=== PATIENT | male | born 1970 | race Caucasian/White ===

== ENCOUNTER → 2021-12-09 08:50 | Outpatient (CLI) | payer OTHER, SELFPAY ==
--- NOTE | 2021-12-09 | DI.CT.S_ITS ---
PROCEDURE: CT SINUS SCREEN WO CON INDICATIONS: Chronic pansinusitis TECHNIQUE: Noncontrast 3.0 mm axial images acquired from the frontal sinuses to the mid-sella, with coronal and sagittal reformats. For radiation dose reduction, the following was used: automated exposure control, adjustment of mA and/or kV according to patient size. COMPARISON: [facility], CT, CT SINUS WO CON, 05/21/2015, 9:39. FINDINGS: Image quality: Excellent. Postsurgical changes compatible with prior functional endoscopic sinus surgery. Polypoid mucosal thickening noted in the maxillary sinuses bilaterally, the sphenoid sinuses bilaterally, the anterior ethmoid air cells bilaterally in the frontal sinuses bilaterally. No air-fluid levels. No osseous thickening, osseous remodeling or osseous erosive changes. Nasal septum is deviated to the right. Moderate-sized right naye bullosa. No paradoxical middle turbinates. Large left frontal bulbar cell. Right inter frontal sinus septal cell. Sphenoid pneumatization is sellar complete. IMPRESSION: 1. Prior functional endoscopic sinus surgery. 2. Pansinusitis. 3. Variant paranasal sinus anatomy as described above. Dictated by: Vanda Toribio MD, PhD on 12/09/2021 at 10:51 Approved by: Vanda Toribio MD, PhD on 12/09/2021 at 10:56
== END ==
PROVIDERS: Family Provider Family Medicine; PCP Family Medicine; Referring Provider Otolaryngology; Visit Provider Otolaryngology
DX: R05.9 Cough, unspecified (principal); J32.4 Chronic pansinusitis; J33.9 Nasal polyp, unspecified; J34.2 Deviated nasal septum
CPT/HCPCS: 70486

== ENCOUNTER → 2023-05-21 07:49 | Outpatient (CLI) | payer OTHER, SELFPAY ==
--- NOTE | 2023-05-21 | DI.CT.S_ITS ---
PROCEDURE: CT SINUS SCREEN WO CON INDICATIONS: pansinusitis TECHNIQUE: Noncontrast 3.0 mm axial images acquired from the frontal sinuses to the mid-sella, with coronal and sagittal reformats. For radiation dose reduction, the following was used: automated exposure control, adjustment of mA and/or kV according to patient size. COMPARISON: [facility], CT, CT SINUS SCREEN WO CON, 12/09/2021, 8:53. FINDINGS: Image quality: Excellent. Sinuses: Postsurgical changes reflecting prior functional endoscopic sinus surgery. There is minimal right maxillary sinus mucosal thickening which has decreased compared to prior exam. Mucous retention cyst versus polyp is present in the left maxillary sinus, unchanged. There is decreased sulcal thickening in the left maxillary sinus. Scattered areas of right ethmoid mucosal thickening extending to the right frontal sinus are unchanged. No fluid levels. Left frontal bulbar cell. No osseous erosive changes. Ostiomeatal Complexes: Ostiomeatal complexes are patent. Miscellaneous: Visualized intra-orbital contents are normal. Right naye bullosa. No paradoxical turbinate curvature. Rightward nasal septal deviation. IMPRESSION: Scattered areas of pansinus disease most severe in the right maxillary and ethmoid sinuses are again identified although mildly improved. No fluid levels. Dictated by: Mahnaz Calvo M.D. on 05/21/2023 at 9:16 Approved by: Mahnaz Calvo M.D. on 05/21/2023 at 9:50
--- NOTE | 2023-05-21 07:50 | DI.CT.S_ITS ---
PROCEDURE: CT CHEST WO CON INDICATIONS: cough, unresolved TECHNIQUE: Noncontrast 5 mm thick sections acquired from the pulmonary apices to the posterior costophrenic angles. 1 mm lung window, 5 mm thick coronal and sagittal and 7 mm axial MIP reformats were then acquired. For radiation dose reduction, the following was used: automated exposure control, adjustment of mA and/or kV according to patient size. COMPARISON: [facility], CHEST 2 VIEW, 06/25/2016, 14:04. FINDINGS: Image quality: Excellent. Lungs and pleura: No acute air space opacities. No pleural effusions or pneumothorax. Central and peripheral airways are patent and normal in caliber. Mediastinum: Heart size is normal. No pericardial effusion. No mediastinal adenopathy by size criteria. Thoracic aorta and central pulmonary arteries are normal in size. Esophagus is normal in caliber. No hiatal hernia. Bones and chest wall: No suspicious bony lesions. No vertebral body compression fractures. No axillary or supraclavicular adenopathy by size criteria. Thyroid gland is unresolved. Abdomen: Visualized upper abdominal solid organs and bowel loops appear normal in the absence of contrast. IMPRESSION: Lungs are clear. Dictated by: Mahnaz Calvo M.D. on 05/21/2023 at 15:12 Approved by: Mahnaz Calvo M.D. on 05/21/2023 at 15:14
== END ==
PROVIDERS: Family Provider Family Medicine; PCP Family Medicine; Referring Provider Internal Medicine; Visit Provider Internal Medicine
DX: R05.3 Chronic cough (principal); J32.4 Chronic pansinusitis; J33.9 Nasal polyp, unspecified
CPT/HCPCS: 70486; 71250; 94060; 94726; 94729

== ENCOUNTER → 2023-05-21 08:11 | Outpatient (CLI) | payer OTHER, SELFPAY | PROVIDERS: Family Provider Family Medicine; PCP Family Medicine; Referring Provider Internal Medicine; Visit Provider Internal Medicine | DX: R05.3 Chronic cough (principal) | CPT/HCPCS: 94060; 94726; 94729 ==

== ENCOUNTER → 2024-05-05 10:54 | Outpatient (CLI) | payer BC, SELFPAY ==
--- NOTE | 2024-05-05 | DI.RAD.S_ITS ---
PROCEDURE: FL UPPER GI SERIES INDICATIONS: HIATAL HERNIA COMPARISON: None. 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 No suspicious abdominal calcifications. Visualized solid organ contours appear normal. Bony structures appear unremarkable. Esophagus: Esophageal mucosa is normal on air-contrast views. On single-contrast views, there is normal esophageal peristalsis. No strictures, extrinsic mass effects, or diverticula. No elicited gastroesophageal reflux. Small sliding-type hiatal hernia. Stomach: The stomach is normally distensible, with normal rugal fold thickness. No mucosal masses or ulcers. Pylorus and duodenal bulb appear normal in morphology. Duodenal folds are normal in thickness as well. IMPRESSION: Small sliding-type hiatal hernia. Otherwise, essentially unremarkable upper GI examination. Dictated by: Sharath Meza M.D. on 05/05/2024 at 13:23 Approved by: Sharath Meza M.D. on 05/05/2024 at 13:25
== END ==
PROVIDERS: Family Provider Family Medicine; PCP Family Medicine; Referring Provider Nurse Practitioner Adult Health; Visit Provider Nurse Practitioner Adult Health
DX: K44.9 Diaphragmatic hernia without obstruction or gangrene (principal); K21.9 Gastro-esophageal reflux disease without esophagitis
CPT/HCPCS: 74240